=== PATIENT | male | born 1960 | race Caucasian/White ===

== ENCOUNTER 2019-05-17 15:17 | Outpatient (CLI) | payer OTHER, SELFPAY ==
--- NOTE | ~2019-05-17 | MR_ITS ---
EXAMINATION: MR foot RT wo con DATE: 05/17/2019 16:30 INDICATION: Right mid foot injury and pain. TECHNIQUE: Magnetic resonance imaging (MRI) of the right foot was performed without intravenous contr ast. Sequences included sagittal T1-weighted FSE and STIR FSE, long-axis PD-weighted FS FSE and PD-we ighted FSE, and short-axis PD-weighted FS FSE and T1-weighted FSE. COMPARISON: None FINDINGS: Bone alignment is normal. No fracture. There is severe osteoarthritis of third tarsometatar hannah joint and moderate osteoarthritis of intermediate naviculocuneiform joint. There is mild osteoart hritis of many of the midfoot joints. There is moderate osteoarthritis of first metatarsophalangeal j oint. There is a skin marker dorsal to the Lisfranc joint. Lisfranc ligament is intact. There is mild fatty atrophy of abductor digiti quinti muscle. IMPRESSION: 1. Polyarticular osteoarthritis. Reviewed, dictated and finalized at location A.
== END 2019-05-17 15:18 | disposition home or self-care (01) ==
LOC: ANHIMG 15:19
PROVIDERS: PCP Family Medicine; Visit Provider Podiatrist Foot & Ankle Surgery
DX: M19.071 Primary osteoarthritis, right ankle and foot (principal)
CPT/HCPCS: 73718

== ENCOUNTER 2019-06-29 10:22 | Emergency (ER) | payer OTHER, SELFPAY ==
--- NOTE | ~2019-06-29 | CT_ITS ---
EXAMINATION: CT abdomen pelvis w con DATE: 06/29/2019 11:57 INDICATION: Lower abdominal pain. Obstipation. TECHNIQUE: Computed tomography (CT) of the abdomen and pelvis was performed with 100 cc Omnipaque 350 intravenous contrast. Automated exposure control and iterative reconstruction technique were employe d. Exam dose: 1579.23 mGy-cm total exam DLP. COMPARISON: None. FINDINGS: There is discoid atelectasis and/or scarring in both lower lungs. Heart size is normal. No pericardial or pleural effusion. A fundoplication device is noted. Small sliding hiatal hernia. The liver, gallbladder, spleen, pancreas, bile and pancreatic ducts appear normal. Normal morphology of the adrenal glands. There is an up to 4 x 6 mm nonobstructing lower pole left renal calculus. No other urinary tract calc ulus. No hydroureteronephrosis. No renal space occupying mass lesion is evident. Normal caliber of the abdominal aorta. No intraperitoneal or retroperitoneal or pelvic mass lesion or adenopathy or ascites. There is a prominent of fecal material in the rectum and sigmoid colon, with moderate thickening and pneumatosis of the wall of the rectum and sigmoid colon and minimal pericolic fat stranding, suggesti ng possible stercoral proctocolitis. Fecal impaction may cause ischemic pressure necrosis and subsequ ent colonic perforation. Gastroenterology consult might be considered. Relief of the fecal impaction is recommended in order to avoid any possible colonic perforation, peritonitis. Normal appendix. Otherwise no bowel obstruction. No intraperitoneal free air is detected. The urinary bladder, seminal vesicles and prostate gland are unremarkable. Diffuse idiopathic skeletal hyperostosis of the lower thoracic spine. IMPRESSION: Stercoral proctocolitis; this carries the risk of colonic perforation, peritonitis witho ut relief of fecal impaction. Consider gastroenterology consult. Left nonobstructive nephrolithiasis Dr. Armendariz telephoned the report and recommendation to emergency room physician Dr. Maharaj on 0 at 1235 hours Reviewed, dictated and finalized at [facility]. Reviewed, dictated and finalized at location A. IMPRESSION: Stercoral proctocolitis; this carries the risk of colonic perforat ion, peritonitis without relief of fecal impaction. Consider gastroenterology consult. Left nonobstructive nephrolithiasis Dr. Armendariz telephoned the report and recommendation to emergency room physician Nita Maharaj on 06/29/2019 at 1235 hours
[2019-06-29 10:26] VITALS: BP 152/87; PULSE 81; RESP 18; TEMP 36.8; O2SAT 98
--- NOTE | 2019-06-29 10:34 | ED.ABDPAIN ---
HPI - Abdominal Pain General Chief Complaint: Abdominal Pain Stated Complaint: back, abd pain Time Seen by Provider: 06/29/19 10:28 Source: patient Mode of arrival: ambulatory Limitations: no limitations History of Present Illness HPI narrative: Patient is a 59-year-old male who presents for evaluation of lower abdominal pain. Patient reports a many month history of constipation, states that he has struggled with abdominal pain intermittently that seems to improve when he has bowel movements. He reports he has had a 3-day history of lower abdominal pain, he has had constipation and increased difficulty with bowel movements, he reports he did have one hard bowel movement yesterday, but often has bouts of diarrhea in between. He reports mild abdominal distention. No vomiting. No fever, no chest pain. No dysuria or hematuria. Patient last colonoscopy 7 years ago and was normal per patient. Patient reports rectal pain, no dark or tarry stool. No night sweats or weight loss. No history of cancer. Related Data Allergies Allergy/AdvReac Type Severity Reaction Status Date / Time No Known Allergies Allergy Verified 06/29/19 10:33 Review of Systems Review of Systems: Narrative: CONSTITUTIONAL: Denies fever, chills, or sweats. ENT: Denies rhinorrhea, congestion, sore throat, or otalgia. CARDIOVASCULAR: Denies chest pain, palpitations, or edema. RESPIRATORY: Denies cough or dyspnea. GASTROINTESTINAL: Reports abdominal pain, nausea, vomiting, constipation, reports rectal pain GENITOURINARY: Denies dysuria or hematuria. SKIN: Denies rash or itching. MUSCULOSKELETAL: Denies back pain, joint pain, or myalgia. NEUROLOGIC: Denies headache, numbness, or weakness. [facility] Past Medical History Medical History (Updated 06/29/19 @ 13:18 by Jackie Maharaj MD) Constipation Surgical History Surgical History (Updated 06/29/19 @ 10:50 by Jackie Maharaj MD) No pertinent past surgical history Social History Social History (Updated 06/29/19 @ 10:50 by Jackie Maharaj MD) Smoking status: Current every day smoker Tobacco type: cigarettes Alcohol intake: current Substance use: never Gender identity (if verbalized by the patient): Male Exam Narrative: Exam Narrative: GENERAL: Awake, alert, conversant HEAD: Normocephalic, atraumatic. EYES: PERRLA and EOMI. ENT: Nares clear, no rhinorrhea or epistaxis. Mucous membranes moist. NECK: Supple. CHEST: No respiratory distress, breathing even and non labored HEART: Regular rate, sinus rhythm ABDOMEN:Non distended, mild left lower quadrant tenderness, no guarding, nonrigid. : External hemorrhoid, nonthrombosed, nontender, good rectal tone, hard stool present, some stool was removed. Guaiac negative. EXTREMITIES: Normal range of motion. No edema. SKIN: Warm, dry, no rash. NEURO:No focal deficits. Alert and oriented x3 Course Vital Signs Vital signs: Vital Signs Temperature 36.8 C 06/29/19 10:26 Pulse Rate 81 06/29/19 10:26 Respiratory Rate 18 06/29/19 10:26 Blood Pressure 152/87 H 06/29/19 10:26 Pulse Oximetry 98 06/29/19 10:26 Temperature 36.8 C 06/29/19 10:26 Pulse Rate 81 06/29/19 10:26 Respiratory Rate 18 06/29/19 10:26 Blood Pressure 152/87 H 06/29/19 10:26 Pulse Oximetry 98 06/29/19 10:26 MDM - Abdominal Pain MDM Narrative Medical decision making narrative: Patient presented for evaluation of abdominal pain and constipation. At the time of initial assessment, ABCs are intact and vital signs are stable. Physical examination is notable for lower abdominal tenderness without distention, rebound or guarding. Laboratory results showed no acute electrolyte derangement, no acute kidney injury. CT scan is notable for stercoral proctocolitis, no perforation. Patient was given magnesium, given an enema unable to have a bowel movement in the ER. I spoke with Dr. Dubose, initially if the patient would be unable to have a bowel movement
[2019-06-29 10:57] LABS: Basophils Percent Auto 0.5 % (0.2-1.2); Eosinophils Absolute Auto 0.2 K/mm3 (0-0.3); Eosinophils Percent Auto 1.8 % (0-4.4); Hemoglobin 14.7 g/dL (14.0-18.0); Immature Granulocyte Absolute 0.03 K/mm3 (0.00-0.031); Immature Granulocyte Percent A 0.4 % (0-0.5); Lymphocytes Absolute Auto 2.05 K/mm3 (0.9-3.2); Lymphocytes Percent Auto 23.9 % (18.3-44.2); Mean Corpuscular HGB Conc 33.4 g/dl (32-36); Mean Corpuscular Hemoglobin 29.9 pg (26-34); Mean Corpuscular Volume 89.6 fl (80-100); Mean Platelet Volume 9.8 fl (7.4-10.4); Monocytes Absolute Auto 0.9 K/mm3 (0.1-0.6); Monocytes Percent Auto 10.7 % (2.6-8.5); Neutrophils Absolute Auto 5.4 K/mm3 (1.3-6.7); Neutrophils Percent Auto 62.7 % (45.5-73.1); Platelet Count Result 327 k/mm3 (150-375); Red Blood Count 4.91 M/mm3 (4.6-6.20); Red Cell Distribution Width 12.3 % (11.5-14.5); White Blood Count 8.6 K/mm3 (4.5-10.0)
[2019-06-29 11:12] LABS: Alanine Aminotransferase 24 U/L (4-50); Albumin Level 4.6 g/dL (3.5-5.1); Alkaline Phosphatase 75 U/L (38-126); Aspartate Amino Transferase 24 U/L (17-59); Bilirubin,Total 0.4 mg/dL (0.2-1.3); Blood Urea Nitrogen 21 mg/dL (9-20); Calcium 9.7 mg/dL (8.4-10.2); Carbon Dioxide 28 mmol/L (22-30); Chloride 103 mmol/L (98-107); Estimated CRCL calculation 124 ml/min; Estimated Glomerular Filt Rate > 60; Glucose 102 mg/dL (75-110); Lipase 102 U/L (23-300); Potassium 4.5 mmol/L (3.4-5.0); Sodium 139 mmol/L (137-145)
[2019-06-29] MEDS: MAGNESIUM SULF 2 GM/WATER 50ML 2 GM/50 ML BAG IVPB (12:03)
[2019-06-29 12:43] LABS: Add Urine Microscopic? NO; Appearance Urine Clear (Clear); Bilirubin Urine Negative (Negative); Blood Urine Negative (Negative); Color Urine Straw (Yellow); Glucose Urine UA Negative (Negative); Ketones Urine Negative (Negative); Leukocyte Esterase Ur Negative LEU/UL (Negative); Nitrate Urine Negative (Negative); Protein Urine Negative (Negative); Specific Grav Ur 1.019 (1.001-1.035); Urobilinogen Urine Negative mg/dL (<2.0)
== END 2019-06-29 14:22 | disposition home or self-care (01) ==
PROVIDERS: Emergency Provider Emergency Medicine
DX: K59.00 Constipation, unspecified (principal); F17.210 Nicotine dependence, cigarettes, uncomplicated; N20.0 Calculus of kidney
CPT/HCPCS: 36415; 74177; 80053; 81003; 83690; 85025; 96365; 99284; J3475; Q9967

== ENCOUNTER 2019-07-18 02:12 | Emergency (ER) | payer OTHER, MEDICARE, SELFPAY ==
--- NOTE | ~2019-07-18 | XR_ITS ---
EXAMINATION: XR chest 2V DATE: 07/18/2019 02:58 INDICATION: Shortness of breath. TECHNIQUE: Frontal and lateral views of the chest were obtained. COMPARISON: Chest 2 views 01/19/2018, CT abdomen and pelvis 07/18/2019 FINDINGS: There is mild atelectasis in the lower lung zones. No pleural effusion or pneumothorax. The heart size is normal. There is a lap band around the proximal stomach with normal phi angle. IMPRESSION: 1. Mild atelectasis in the lower lung zones. Reviewed, dictated and finalized at location A.
--- NOTE | ~2019-07-18 | CT_ITS ---
EXAMINATION: CT abd pelvis lumbar w con DATE: 07/18/2019 03:10 INDICATION: Abdominal pain. Back pain. TECHNIQUE: Computed tomography (CT) of the abdomen, pelvis, and lumbar spine was performed with 100 m L Omnipaque 350 intravenous contrast. Automated exposure control and iterative reconstruction Julep ue were employed. The dose-length product was 1492.76 mGy-cm. COMPARISON: CT abdomen and pelvis 06/29/2019 FINDINGS: CT ABDOMEN AND PELVIS: The visualized portions of the lung bases demonstrate mild atelectasis. No pleural effusion. The hear t size is normal. No pericardial effusion. There is wall thickening of the distal esophagus, likely e sophagitis. There is a lap band with normal phi angle. The liver, gallbladder, spleen, pancreas, adre nal glands, and right kidney are normal. There is a 4 mm stone in left kidney. There is a small left inguinal hernia containing fat. There are no dilated loops of bowel. The appendix is normal. There ar e no pathologically enlarged lymph nodes. There is no free intraperitoneal fluid. CT LUMBAR SPINE: Bone alignment is normal. Vertebral body heights are normal. There is mildly decreased disc height at L1-L2, L2-L3, and L4-L5. The following disc levels are specifically discussed: L1-L2: The disc is bulging. There is mild bilateral facet joint osteoarthritis. There is mild right n eural foraminal stenosis. There is mild central canal stenosis. L2-L3: The disc is bulging. There is mild bilateral facet joint osteoarthritis. There is mild bilater al neural foraminal stenosis. There is mild central canal stenosis. L3-L4: The disc is bulging. There is mild bilateral facet joint osteoarthritis. There is mild bilater al neural foraminal stenosis. There is mild central canal stenosis. L4-L5: The disc is bulging. There is mild bilateral facet joint osteoarthritis. There is mild bilater al neural foraminal stenosis. There is mild central canal stenosis. L5-S1: The disc is bulging. There is mild bilateral facet joint osteoarthritis. There is mild bilater al neural foraminal stenosis. There is mild central canal stenosis. IMPRESSION: 1. Stable wall thickening of the distal esophagus, likely esophagitis. 2. Mild lumbar spondylosis. Reviewed, dictated and finalized at location A.
[2019-07-18 02:19] VITALS: BP 132/75; PULSE 64; RESP 20; TEMP 36.8; O2SAT 100
--- NOTE | 2019-07-18 02:20 | ED.GENADULT ---
HPI - General Adult General Chief complaint: Shortness of Breath/Dyspnea Stated complaint: back pain, sob Time Seen by Provider: 07/18/19 02:20 Source: patient Mode of arrival: ambulatory Limitations: no limitations History of Present Illness HPI narrative: Patient is a 59-year-old male that returns for evaluation of back pain, abdominal pain, chest pain and shortness of breath. Patient was seen by myself in the emergency department approximately 2 weeks ago, diagnosed with obstipation, able to have a bowel movement, and was discharged home. Patient is reporting with chest pain as well as pain when taking a deep breath. He states that this is been going on for approximately 2 weeks. Patient has had 2 weeks of back pain as well. No recent falls or trauma. Patient is ambulatory. No saddle anesthesia, no difficulty with urination, dysuria or hematuria. No fever. Patient reports a dry cough. He denies abdominal distention, he states it has been 2 days since he has had a bowel movement. Patient denies any current shortness of breath, states that he notices it more when he is at exertion. P Related Data Allergies Allergy/AdvReac Type Severity Reaction Status Date / Time No Known Allergies Allergy Verified 07/18/19 02:27 Review of Systems Review of Systems: Narrative: CONSTITUTIONAL: Denies fever, chills, or sweats. EYES: Denies visual changes ENT: Denies rhinorrhea, reports congestion CARDIOVASCULAR: Reports chest pain, denies palpitations or edema RESPIRATORY: Reports dry cough and shortness of breath GASTROINTESTINAL: Reports abdominal pain and constipation GENITOURINARY: Denies dysuria or hematuria. SKIN: Denies rash or itching. MUSCULOSKELETAL: Reports back pain for 2 weeks, no myalgias NEUROLOGIC: Denies headache, numbness, or weakness. [facility] Past Medical History Medical History Constipation Surgical History Surgical History No pertinent past surgical history Social History Social History Smoking status: Current every day smoker Tobacco type: cigarettes Alcohol intake: current Substance use: never Gender identity (if verbalized by the patient): Male Exam Narrative: Exam Narrative: GENERAL: Awake, alert, conversant HEAD: Normocephalic, atraumatic. EYES: PERRLA and EOMI. ENT: Nares clear, no rhinorrhea or epistaxis. Mucous membranes moist. NECK: Supple. CHEST: No respiratory distress, breathing even and non labored HEART: Regular rate, sinus rhythm ABDOMEN:Non distended, mild tenderness to palpation throughout, no guarding, no rigidity Thorax: No thoracic midline tenderness. Positive lumbar midline tenderness at L2. This exactly reproduces pain. No overlying erythema. No paraspinal tenderness. Pain is worse with movement. EXTREMITIES: Normal range of motion. No edema. SKIN: Warm, dry, no rash. NEURO:No focal deficits. Alert and oriented x3. EOMs intact without nystagmus. No facial droop/asymmetry noted bilaterally. Grimace intact. Intact sensation in face. Hearing intact bilaterally. Shoulder shrug intact. Strength 5/5 bilateral upper extremities. Strength 5/5 bilateral lower extremities. Patient is ambulatory with a narrow base, steady gait, no weakness. Course Course Emergency Course: Patient presented for 2 weeks of chest pain, constipation and shortness of breath. Patient without any dyspnea with exertion, normal vital signs at the time of assessment. Mild abdominal tenderness. Doubt PE given no risk factors for this. D-dimer is not elevated making this less suggestive. No coronavirus type symptoms. Troponin is undetected, making ACS unlikely in the setting of 2 weeks of pain. EKG without acute ischemic changes. CT imaging is reassuring. No evidence of diverticulitis, obstruction or perforation. Lumbar spine without acute fractu
--- NOTE | 2019-07-18 02:22 | ECG_ITS ---
Measurements Intervals [place] Rate: 58 P: 20 LA: 161 QRS: 81 QRSD: 95 T: 75 QT: 398 QTc: 391 Interpretive Statements SINUS BRADYCARDIA PEAKED T WAVES- CONSIDER HYPERKALEMIA OR ISCHEMIA BASELINE ARTIFACT- I, II, III, AVR, AVL, AVF, V2, V4 ABNORMAL ECG Electronically Signed On 07-18-2019 7:03:19 CDT by Tra Brand D.O.
[2019-07-18 02:34] LABS: Basophils Absolute Auto 0.1 K/mm3 (0.0-0.1); Basophils Percent Auto 0.5 % (0.2-1.2); Eosinophils Absolute Auto 0.2 K/mm3 (0-0.3); Eosinophils Percent Auto 1.4 % (0-4.4); Hemoglobin 14.2 g/dL (14.0-18.0); Immature Granulocyte Absolute 0.03 K/mm3 (0.00-0.031); Immature Granulocyte Percent A 0.3 % (0-0.5); Lymphocytes Absolute Auto 2.46 K/mm3 (0.9-3.2); Lymphocytes Percent Auto 22.5 % (18.3-44.2); Mean Corpuscular HGB Conc 33.8 g/dl (32-36); Mean Corpuscular Hemoglobin 30.2 pg (26-34); Mean Corpuscular Volume 89.4 fl (80-100); Mean Platelet Volume 9.3 fl (7.4-10.4); Monocytes Absolute Auto 1.2 K/mm3 (0.1-0.6); Monocytes Percent Auto 10.6 % (2.6-8.5); Neutrophils Absolute Auto 7.1 K/mm3 (1.3-6.7); Neutrophils Percent Auto 64.7 % (45.5-73.1); Platelet Count Result 329 k/mm3 (150-375); Red Cell Distribution Width 12.2 % (11.5-14.5); White Blood Count 10.9 K/mm3 (4.5-10.0)
--- NOTE | 2019-07-18 02:37 | PC.NURSE ---
called lab and notified of add on labs
[2019-07-18 02:47] LABS: Alanine Aminotransferase 17 U/L (4-50); Albumin Level 4.4 g/dL (3.5-5.1); Alkaline Phosphatase 76 U/L (38-126); Aspartate Amino Transferase 21 U/L (17-59); Bilirubin,Total 0.2 mg/dL (0.2-1.3); Blood Urea Nitrogen 19 mg/dL (9-20); Calcium 9.5 mg/dL (8.4-10.2); Carbon Dioxide 28 mmol/L (22-30); Chloride 101 mmol/L (98-107); Estimated CRCL calculation 122 ml/min; Estimated Glomerular Filt Rate > 60; Glucose 103 mg/dL (75-110); Potassium 3.8 mmol/L (3.4-5.0); Sodium 138 mmol/L (137-145)
[2019-07-18] MEDS: DIAZEPAM 5 MG TABLET PO (02:49)
[2019-07-18] MEDS: ASPIRIN 81 MG CHEWABLE TABLET 324 MG PO (02:49)
[2019-07-18] MEDS: ACETAMINOPHEN 500 MG TABLET 1000 MG PO (02:49)
[2019-07-18] MEDS: KETOROLAC 15 MG/ML VIAL (*BKC) IV PUSH (02:50)
[2019-07-18 02:54] LABS: Partial Thromboplastin Time 27.3 SECONDS (22.3-36.8)
[2019-07-18 02:56] LABS: D Dimer 0.35 ug/mL (<0.48); NT Pro B Type Natriuretic Pept 105 PG/ML (5-100)
[2019-07-18 02:59] LABS: Troponin I < 0.012 ng/mL (0.000-0.034)
[2019-07-18 03:21] VITALS: BP 107/93; PULSE 60; RESP 20; O2SAT 99
[2019-07-18 04:04] VITALS: BP 116/78; PULSE 60; RESP 20; O2SAT 99
[2019-07-18 05:05] VITALS: BP 127/81; PULSE 55; RESP 18; O2SAT 99
== END 2019-07-18 05:13 | disposition home or self-care (01) ==
PROVIDERS: Emergency Provider Emergency Medicine; PCP Family Medicine
DX: R07.89 Other chest pain (principal); K59.01 Slow transit constipation; M54.5 Low back pain; F17.210 Nicotine dependence, cigarettes, uncomplicated; R00.1 Bradycardia, unspecified; R94.31 Abnormal electrocardiogram [ECG] [EKG]; M47.816 Spondylosis without myelopathy or radiculopathy, lumbar region; R93.3 Abnormal findings on diagnostic imaging of other parts of digestive tract
CPT/HCPCS: 36415; 71046; 72132; 74177; 80053; 83880; 84484; 85025; 85380; 85610; 85730; 93005; 96374; 99284; A9270; J1885; Q9967

== ENCOUNTER 2020-04-03 09:34 | Emergency (ER) | payer OTHER, SELFPAY ==
--- NOTE | ~2020-04-03 | CT_ITS ---
EXAMINATION: CT abdomen pelvis w con DATE: 04/03/2020 11:07 INDICATION: Left abdominal pain. TECHNIQUE: Computed tomography (CT) of the abdomen and pelvis was performed with 100 mL Omnipaque 350 intravenous contrast. Automated exposure control and iterative reconstruction technique were employe d. The dose-length product was 1634.35 mGy-cm. COMPARISON: CT abdomen and pelvis 07/18/2019 FINDINGS: The visualized portions of the lung bases demonstrate mild atelectasis. No pleural effusion . The heart size is normal. No pericardial effusion. There is a lap band in the proximal stomach with phi angle of 24 degrees. The liver, gallbladder, spleen, pancreas, adrenal glands, and right kidney are normal. There is mild left hydronephrosis. There is a 5 mm stone in proximal left ureter. Again s een is wall thickening of the distal esophagus. There are no dilated loops of bowel. The appendix is normal. There is a small left inguinal hernia containing fat. There are no pathologically enlarged ly mph nodes. There is no free intraperitoneal fluid. There is mild thoracolumbar spondylosis. IMPRESSION: 1. 5 mm stone in proximal left ureter with mild left hydronephrosis. 2. Persistent wall thickening of the distal esophagus, likely esophagitis. Reviewed, dictated and finalized at location A. TENDER
[2020-04-03 10:00] VITALS: BP 155/82; PULSE 73; RESP 20; TEMP 36.9; O2SAT 99
[2020-04-03 10:21] LABS: Basophils Absolute Auto 0.1 K/mm3 (0.0-0.1); Basophils Percent Auto 0.6 % (0.2-1.2); Eosinophils Absolute Auto 0.1 K/mm3 (0-0.3); Eosinophils Percent Auto 0.8 % (0-4.4); Hematocrit 42.6 % (42.0-52.0); Hemoglobin 14.3 g/dL (14.0-18.0); Immature Granulocyte Absolute 0.02 K/mm3 (0.00-0.031); Immature Granulocyte Percent A 0.2 % (0-0.5); Lymphocytes Absolute Auto 1.82 K/mm3 (0.9-3.2); Lymphocytes Percent Auto 21.2 % (18.3-44.2); Mean Corpuscular HGB Conc 33.6 g/dl (32-36); Mean Corpuscular Hemoglobin 29.1 pg (26-34); Mean Corpuscular Volume 86.6 fl (80-100); Mean Platelet Volume 9.3 fl (7.4-10.4); Monocytes Percent Auto 11.3 % (2.6-8.5); Neutrophils Absolute Auto 5.7 K/mm3 (1.3-6.7); Neutrophils Percent Auto 65.9 % (45.5-73.1); Platelet Count Result 330 k/mm3 (150-375); Red Blood Count 4.92 M/mm3 (4.6-6.20); Red Cell Distribution Width 12.7 % (11.5-14.5); White Blood Count 8.6 K/mm3 (4.5-10.0)
[2020-04-03 10:26] LABS: Add Urine Microscopic? YES; Appearance Urine Cloudy (Clear); Bilirubin Urine Negative (Negative); Blood Urine 3+ (Negative); Color Urine Yellow (Yellow); Glucose Urine UA Negative (Negative); Ketones Urine Trace mg/dL (Negative); Leukocyte Esterase Ur Trace LEU/UL (Negative); Mucus Urine Heavy /lpf; Nitrate Urine Negative (Negative); Protein Urine 2+ mg/dL (Negative); RBC Urine >75 /hpf (0-2); Specific Grav Ur 1.026 (1.001-1.035); Urobilinogen Urine Negative mg/dL (<2.0)
[2020-04-03 10:32] LABS: Chloride 101 mmol/L (98-107)
[2020-04-03 10:44] LABS: Alanine Aminotransferase 26 U/L (4-50); Albumin Level 4.3 g/dL (3.5-5.1); Alkaline Phosphatase 85 U/L (38-126); Anion Gap 10 mmol/L (8-16); Aspartate Amino Transferase 28 U/L (17-59); Bilirubin,Total 0.5 mg/dL (0.2-1.3); Blood Urea Nitrogen 14 mg/dL (9-20); Calcium 9.3 mg/dL (8.4-10.2); Carbon Dioxide 27 mmol/L (22-30); Estimated CRCL calculation 129 ml/min; Estimated Glomerular Filt Rate > 60; Glucose 107 mg/dL (75-110); Lipase 186 U/L (23-300); Potassium 3.9 mmol/L (3.4-5.0); Sodium 138 mmol/L (137-145)
--- NOTE | 2020-04-03 10:51 | ED.ABDPAIN ---
HPI - Abdominal Pain General Chief Complaint: Abdominal Pain Stated Complaint: ABD PAIN [id number] Time Seen by Provider: 04/03/20 09:37 Source: patient Mode of arrival: ambulatory Limitations: no limitations History of Present Illness HPI narrative: A 59-year-old male presents to the emergency department complaints of abdominal pain starting in his left upper quadrant and left flank. Patient states that the pain has been very episodic. He notes that the pain will come on spike up and be present for approximately an hour and then dwindle away. He states currently his pain is about a 1 out of 10. He denies any issues with urination or constipation. Patient states he has been having normal bowel movements. He denies any fevers or chills. He does endorse some nausea with severe pain but states normally he does not. He states he has never had pain like this before. Patient is concerned because he has a history of a LAP-BAND surgery. Related Data Home Medications Medication Instructions Recorded Confirmed paroxetine HCl mg PO 04/03/20 Allergies Allergy/AdvReac Type Severity Reaction Status Date / Time No Known Allergies Allergy Verified 04/03/20 10:03 Review of Systems Review of Systems: Narrative: CONSTITUTIONAL: Denies fever, chills, or sweats. EYES: Denies visual changes, redness, or discharge. ENT: Denies rhinorrhea, congestion, sore throat, or otalgia. CARDIOVASCULAR: Denies chest pain, palpitations, or edema. RESPIRATORY: Denies cough or dyspnea. GASTROINTESTINAL: Denies abdominal pain, nausea, vomiting, or diarrhea. Endorses left abdominal/flank pain GENITOURINARY: Denies dysuria or hematuria. SKIN: Denies rash or itching. MUSCULOSKELETAL: Denies back pain, joint pain, or myalgia. NEUROLOGIC: Denies headache, numbness, dizziness, or weakness. PSYCHIATRIC: Denies anxiety or depression. [facility] Past Medical History Medical History (Updated 04/03/20 @ 12:13 by Pino Gonzalez DO) Constipation Surgical History Surgical History No pertinent past surgical history Social History Social History Smoking status: Current every day smoker Tobacco type: cigarettes Alcohol intake: current Substance use: never Gender identity (if verbalized by the patient): Male Exam Narrative: Exam Narrative: GENERAL: Well-appearing, well-nourished, and in no acute distress. HEAD: Normocephalic, atraumatic. EYES: PERRLA and EOMI. ENT: Nares clear, no rhinorrhea or epistaxis. Mucous membranes moist. Oropharynx without tonsillar hypertrophy exudate or other lesions. Bilateral TMs pearly lemons nonbulging NECK: Supple. No adenopathy or masses. No carotid bruits or JVD CHEST: Clear to auscultation. No respiratory distress. No wheezes rales or rhonchi HEART: Regular rate and rhythm. No murmur heard. Normal peripheral pulses. ABDOMEN: Soft, nontender, nondistended, normal active bowel sounds. EXTREMITIES: Normal range of motion. No edema. SKIN: Warm, dry, no rash. NEURO: No focal deficits. Alert and oriented x3. PSYCH: Normal mood and affect. Course Reevaluation(s) Reevaluation #1: Patient resting comfortably at this time. He was informed of his work-up. He states that his pain has decreased. Explained the patient the plan for moving forward. He will be discharged with pain medicines, Flomax and urology follow-up. Time: 12:12 Vital Signs Vital signs: Vital Signs Temperature 36.9 C 04/03/20 10:00 Pulse Rate 73 04/03/20 10:00 Respiratory Rate 04/03/20 10:00 Blood Pressure 155/82 H 04/03/20 10:00 Pulse Oximetry 99 04/03/20 10:00 Temperature 36.9 C 04/03/20 10:00 Pulse Rate 73 04/03/20 10:00 Respiratory Rate 20 04/03/20 10:00 Blood Pressure 155/82 H 04/03/20 10:00 Pulse Oximetry 99 04/03/20 10:00 MDM - Abdominal Pain MDM Narrative Medical decision making narrative: In
[2020-04-03 12:16] VITALS: BP 154/71; PULSE 60; RESP 16; O2SAT 100
== END 2020-04-03 12:36 | disposition home or self-care (01) ==
PROVIDERS: Emergency Provider Emergency Medicine
DX: N13.2 Hydronephrosis with renal and ureteral calculous obstruction (principal)
CPT/HCPCS: 36415; 74177; 80053; 81001; 83690; 85025; 87086; 99284; Q9967

== ENCOUNTER 2020-04-06 10:49 | Outpatient (CLI) | payer OTHER, SELFPAY ==
--- NOTE | ~2020-04-06 | XR_ITS ---
XR abdomen/kub 1V DATE: 04/06/2020 11:08 INDICATION: Left ureteral calculus TECHNIQUE: AP projection, 2 views COMPARISON: 04/03/2020 CT abdomen pelvis FINDINGS: Questionable small faintly calcified calculus overlying the left ureteropelvic junction; no ncontrast CT abdomen pelvis would be helpful to confirm or exclude such. Otherwise no urinary tract calcification is evident. The psoas shadows are intact. No visceromegaly is evident. Lap band is again noted. No bowel obstruction. IMPRESSION: Questionable faintly calcified calculus at the left ureteropelvic junction; noncontrast C T abdomen pelvis would be helpful to confirm or exclude Reviewed, dictated and finalized at Location [facility]. Reviewed, dictated and finalized at location A. T OPERATOR/SHIFT SUPERVISOR IMPRESSION: Questionable faintly calcified calculus at the left ureteropelvic j unction; noncontrast CT abdomen pelvis would be helpful to confirm or exclude
== END 2020-04-06 10:50 | disposition home or self-care (01) ==
PROVIDERS: PCP Emergency Medicine; Visit Provider Urology
DX: N20.1 Calculus of ureter (principal)
CPT/HCPCS: 74018

== ENCOUNTER 2020-04-07 12:25 | Outpatient (CLI) | payer OTHER, SELFPAY ==
--- NOTE | ~2020-04-07 | MR_ITS ---
EXAMINATION: MR foot RT wo con DATE: 04/07/2020 13:54 INDICATION: Right foot pain. Right foot osteoarthritis. TECHNIQUE: Magnetic resonance imaging (MRI) of the right foot was performed without intravenous contr ast. Sequences included sagittal T1-weighted FSE and STIR FSE, long-axis PD-weighted FS FSE and PD-we ighted FSE, and short-axis PD-weighted FS FSE and T1-weighted FSE. COMPARISON: Right foot MRI 05/17/2019 FINDINGS: Bone alignment is normal. No fracture. There is moderate osteoarthritis of intermediate douglas iculocuneiform joint. There is severe osteoarthritis of third tarsometatarsal joint. There is mild os teoarthritis of many of the midfoot joints. There is moderate osteoarthritis of first metatarsophalan geal joint. Lisfranc ligament is intact. The flexor and extensor tendons are normal. There is a skin marker dorsal to the Lisfranc joint. There is mild fatty atrophy of abductor digiti quinti muscle. IMPRESSION: 1. Stable polyarticular osteoarthritis. Reviewed, dictated and finalized at location A. H BOX TENDER
== END 2020-04-07 12:26 | disposition home or self-care (01) ==
PROVIDERS: PCP Emergency Medicine
DX: M19.071 Primary osteoarthritis, right ankle and foot (principal)
CPT/HCPCS: 73718

== ENCOUNTER 2020-05-31 22:06 | Emergency (ER) | payer OTHER, SELFPAY ==
--- NOTE | ~2020-05-31 | CT_ITS ---
EXAMINATION: CT abdomen pelvis w con DATE: 06/01/2020 00:53 INDICATION: Abdominal pain. Gastric lap band removed 8 days ago TECHNIQUE: Computed tomography (CT) of the abdomen and pelvis was performed with 100 cc Omnipaque 350 intravenous contrast. Automated exposure control and iterative reconstruction technique were employe d. Exam dose: 1645.09 mGy-cm total exam DLP. COMPARISON: 04/03/2020 CT abdomen pelvis FINDINGS: Prominent discoid atelectasis or scarring in the lower lung zones. Cardiomegaly. No pericardial or pleural effusion. The gallbladder is contracted. The liver, spleen, pancreas, bile ducts, pancreatic duct and adrenal g lands are unremarkable. No renal mass lesion. No urinary tract calculus or hydroureteronephrosis. The urinary bladder is unre markable. Moderate prostate enlargement. Small fat-containing left inguinal hernia. Small fat-containing umbilical hernia. Normal appendix. Mild colonic diverticulosis; no CT evidence of diverticulitis. No bowel obstruction, bowel wall thickening, pneumatosis or intraperitoneal free air. Normal caliber of the abdominal aorta. No intraperitoneal or retroperitoneal or pelvic mass lesion or adenopathy or ascites. No suspicious osteolytic or osteoblastic lesions. There is a 8.9 x 3.4 x 6.1 cm fluid collection and small air collections in the subcutaneous tissues along the left anterior abdominal wall, with adjacent fat stranding. This may represent an abscess. IMPRESSION: Fluid and small collection, possibly abscess, along left anterior abdominal wall with schreiber rrounding subcutaneous fat stranding Reviewed, dictated and finalized at [facility] Reviewed, dictated and finalized at [facility] IMPRESSION: Fluid and small collection, possibly abscess, along left anterior abdominal wall with surrounding subcutaneous fat stranding
[2020-05-31 22:12] VITALS: BP 134/88; PULSE 103; RESP 16; TEMP 36.4; O2SAT 98
[2020-05-31] MEDS: SODIUM CHLORIDE 0.9% IV 1,000 ML 999 ML IV CONT (22:49)
[2020-05-31] MEDS: ONDANSETRON INJ 4 MG/2 ML VIAL IV PUSH (22:49)
[2020-05-31 22:50] LABS: Basophils Percent Auto 0.4 % (0.2-1.2); Eosinophils Absolute Auto 0.2 K/mm3 (0-0.3); Eosinophils Percent Auto 2.2 % (0-4.4); Hematocrit 41.2 % (42.0-52.0); Hemoglobin 13.6 g/dL (14.0-18.0); Immature Granulocyte Absolute 0.04 K/mm3 (0.00-0.031); Immature Granulocyte Percent A 0.4 % (0-0.5); Lymphocytes Absolute Auto 2.11 K/mm3 (0.9-3.2); Lymphocytes Percent Auto 19.8 % (18.3-44.2); Mean Corpuscular Hemoglobin 29.3 pg (26-34); Mean Corpuscular Volume 88.8 fl (80-100); Mean Platelet Volume 9.7 fl (7.4-10.4); Monocytes Absolute Auto 1.1 K/mm3 (0.1-0.6); Monocytes Percent Auto 10.2 % (2.6-8.5); Neutrophils Absolute Auto 7.2 K/mm3 (1.3-6.7); Platelet Count Result 395 k/mm3 (150-375); Red Blood Count 4.64 M/mm3 (4.6-6.20); Red Cell Distribution Width 13.2 % (11.5-14.5); White Blood Count 10.7 K/mm3 (4.5-10.0)
[2020-05-31 23:03] LABS: Alanine Aminotransferase 24 U/L (4-50); Albumin Level 4.4 g/dL (3.5-5.1); Alkaline Phosphatase 91 U/L (38-126); Anion Gap 11 mmol/L (8-16); Aspartate Amino Transferase 27 U/L (17-59); Bilirubin,Total 0.2 mg/dL (0.2-1.3); Blood Urea Nitrogen 15 mg/dL (9-20); Calcium 9.5 mg/dL (8.4-10.2); Carbon Dioxide 27 mmol/L (22-30); Chloride 100 mmol/L (98-107); Estimated CRCL calculation 118 ml/min; Estimated Glomerular Filt Rate > 60; Glucose 96 mg/dL (75-110); Lipase 112 U/L (23-300); Sodium 138 mmol/L (137-145)
--- NOTE | 2020-05-31 23:17 | ED.GENADULT ---
HPI - General Adult General Chief complaint: Wound/Laceration Stated complaint: post op infection - stomach Time Seen by Provider: 05/31/20 22:22 History of Present Illness HPI narrative: Patient is a 59-year-old gentleman who presents the emergency department with chief complaints of possible infected surgical site. The patient reports that he had a lap band removal and replacement approximately 8 days ago at another facility. The patient states that since he had the procedure he has not felt right and noticed some fullness at one of the incision sites. The patient saw his primary care physician who recommended that he go to the emergency department for evaluation the patient attempted to go to the emergency department at [facility] where his surgeon is states that they were incredibly busy and he sat around for 5 hours and they get nothing Related Data Home Medications Medication Instructions Recorded Confirmed paroxetine HCl mg PO 04/03/20 Allergies Allergy/AdvReac Type Severity Reaction Status Date / Time No Known Allergies Allergy Verified 04/03/20 10:03 Review of Systems Review of Systems: Narrative: A 10 system review of systems was completed on the patient and is negative except for what is stated in the HPI. Nursing and ancillary documentation was reviewed. [facility] Past Medical History Medical History (Updated 06/01/20 @ 01:42 by Salvador Pérez MD) Constipation Surgical History Surgical History No pertinent past surgical history Social History Social History Smoking status: Current every day smoker Tobacco type: cigarettes Alcohol intake: current Substance use: never Gender identity (if verbalized by the patient): Male Comments Patient had a previous lap band and has had a redo 8 days ago Exam Narrative: Exam Narrative: GENERAL: Well-appearing, well-nourished, and in no acute distress. HEAD: Normocephalic, atraumatic. EYES: PERRLA and EOMI. ENT: Nares clear, no rhinorrhea or epistaxis. Mucous membranes moist. NECK: Supple. CHEST: Clear to auscultation. No respiratory distress. HEART: Regular rate and rhythm. No murmur heard. Normal peripheral pulses. ABDOMEN: Soft, nontender, nondistended, normal active bowel sounds. There are several incision sites on the abdomen there is no erythema of the surrounding tissue there is a fullness of the soft tissue surrounding the more midline incision there is no fluctuance there is no erythema there is no warmth EXTREMITIES: Normal range of motion. No edema. SKIN: Warm, dry, no rash. NEURO: No focal deficits. Alert and oriented x3. PSYCH: Normal mood and affect. Course Course Emergency Course: CT scan showed a fluid collection in the left anterior wall at the incision site most likely a seroma Vital Signs Vital signs: Vital Signs Temperature 36.4 C L 05/31/20 22:12 Pulse Rate 103 H 05/31/20 22:12 Respiratory Rate 16 05/31/20 22:12 Blood Pressure 134/88 05/31/20 22:12 Pulse Oximetry 98 05/31/20 22:12 Temperature 36.4 C L 05/31/20 22:12 Pulse Rate 103 H 05/31/20 22:12 Respiratory Rate 16 05/31/20 22:12 Blood Pressure 134/88 05/31/20 22:12 Pulse Oximetry 98 05/31/20 22:12 Medical Decision Making Vital Signs Vital Signs: Vital Signs Temperature 36.4 C L 05/31/20 22:12 Pulse Rate 103 H 05/31/20 22:12 Respiratory Rate 16 05/31/20 22:12 Blood Pressure 134/88 05/31/20 22:12 Pulse Oximetry 98 05/31/20 22:12 Temperature 36.4 C L 05/31/20 22:12 Pulse Rate 103 H 05/31/20 22:12 Respiratory Rate 16 05/31/20 22:12 Blood Pressure 134/88 05/31/20 22:12 Pulse Oximetry 98 05/31/20 22:12 Lab Data Result diagrams: 05/31/20 22:41 05/31/20 22:41 Labs: Lab Results 05/31/20 05/31/20 05/31/20 Range/Units
[2020-06-01 00:05] VITALS: BP 141/86; PULSE 82; RESP 16; O2SAT 98
[2020-06-01 02:00] VITALS: BP 134/82; PULSE 81; RESP 16; TEMP 36.2; O2SAT 98
== END 2020-06-01 02:01 | disposition home or self-care (01) ==
PROVIDERS: Emergency Provider Emergency Medicine; PCP Emergency Medicine
DX: L76.34 Postprocedural seroma of skin and subcutaneous tissue following other procedure (principal); R10.84 Generalized abdominal pain; F17.290 Nicotine dependence, other tobacco product, uncomplicated
CPT/HCPCS: 36415; 74177; 80053; 83605; 83690; 85025; 96361; 96374; 99284; J2405; J7030; Q9967

== ENCOUNTER 2021-09-07 09:54 | Outpatient (CLI) | payer OTHER, SELFPAY ==
--- NOTE | ~2021-09-07 | XR_ITS ---
XR UGIAC wo kub DATE: 09/07/2021 10:53 INDICATION: Preoperative evaluation for gastric sleeve surgery for morbid obesity TECHNIQUE: Air-contrast upper gastrointestinal series 94.755 DAP 1.2 minutes fluoroscopy time 125 images COMPARISON: None FINDINGS: There is normal deglutition and esophageal peristalsis. No stricture, mucosal fold thickeni ng, erosion or ulceration or intraluminal mass lesion of the esophagus, stomach or duodenum is detect ed. No hiatal hernia was demonstrated. IMPRESSION: Normal upper gastrointestinal series Reviewed, dictated and finalized at [facility] Reviewed, dictated and finalized at [facility].
== END 2021-09-07 09:55 | disposition home or self-care (01) ==
PROVIDERS: PCP Emergency Medicine
DX: Z01.818 Encounter for other preprocedural examination (principal); E66.01 Morbid (severe) obesity due to excess calories
CPT/HCPCS: 74246

== ENCOUNTER 2022-02-10 17:31 | Emergency (ER) | payer OTHER, SELFPAY ==
[2022-02-10 17:48] VITALS: BP 121/76; PULSE 76; RESP 16; TEMP 36.7; O2SAT 98
--- NOTE | 2022-02-10 17:57 | ED.URI ---
HPI - URI/Sore Throat General Chief Complaint: Upper Respiratory Infection Stated Complaint: cough congestion headache Time Seen by Provider: 02/10/22 17:57 History of Present Illness HPI Narrative: Patient presents with a five-day history of cough nasal congestion and body aches. Patient denies any shortness of breath no fever no chest pain. Patient had some antibiotics left at home from a previous upper respiratory illness which she has taken those but is unsure of the name of his antibiotics. Patient states he has taken Mucinex [id number] but not and has some cough syrup with codeine left from a previous illness. Related Data Allergies Allergy/AdvReac Type Severity Reaction Status Date / Time No Known Allergies Allergy Verified 04/03/20 10:03 Review of Systems Review of Systems: CONSTITUTIONAL: Denies chills, or sweats. Reports fever and generalized body aches EYES: Denies visual changes, redness, or discharge. ENT: Denies otalgia. Reports nasal congestion runny nose and sore throat CARDIOVASCULAR: Denies chest pain, palpitations, or edema. RESPIRATORY: Denies dyspnea. Reports occasional cough GASTROINTESTINAL: Denies abdominal pain, nausea, vomiting, or diarrhea. GENITOURINARY: Denies dysuria or hematuria. SKIN: Denies rash or itching. MUSCULOSKELETAL: Denies back pain, joint pain, or myalgia. Reports generalized body aches NEUROLOGIC: Denies headache, numbness, or weakness. PSYCHIATRIC: Denies anxiety or depression. [facility] Past Medical History Medical History (Updated 02/10/22 @ 18:02 by DENIZ Elias) Constipation Surgical History Surgical History No pertinent past surgical history Social History Social History Smoking status: Current every day smoker Tobacco type: cigarettes Alcohol intake: current Substance use: never Gender identity (if verbalized by the patient): Male Comments At time of signature, agree with nursing past medical, surgical, social and family history. There is no relevant family history pertinent to the presenting complaint Exam Narrative: CONSTITUTIONAL: Denies chills, or sweats. Reports fever and generalized body aches EYES: Denies visual changes, redness, or discharge. ENT: Denies otalgia. Reports nasal congestion runny nose and sore throat CARDIOVASCULAR: Denies chest pain, palpitations, or edema. RESPIRATORY: Denies dyspnea. Reports occasional cough GASTROINTESTINAL: Denies abdominal pain, nausea, vomiting, or diarrhea. GENITOURINARY: Denies dysuria or hematuria. SKIN: Denies rash or itching. MUSCULOSKELETAL: Denies back pain, joint pain, or myalgia. Reports generalized body aches NEUROLOGIC: Denies headache, numbness, or weakness. PSYCHIATRIC: Denies anxiety or depression. Course Course Level of Care: Express Care Visit Vital Signs Vital signs: Vital Signs Temperature 36.7 C 02/10/22 17:48 Pulse Rate 76 02/10/22 17:48 Respiratory Rate 16 02/10/22 17:48 Blood Pressure 121/76 02/10/22 17:48 Pulse Oximetry 98 02/10/22 17:48 Oxygen Delivery Room Air 02/10/22 17:48 Temperature 36.7 C 02/10/22 17:48 Pulse Rate 76 02/10/22 17:48 Respiratory Rate 16 02/10/22 17:48 Blood Pressure 121/76 02/10/22 17:48 Pulse Oximetry 98 02/10/22 17:48 Oxygen Delivery Room Air 02/10/22 17:48 MDM - URI/Sore Throat Differential Diagnosis Differential diagnosis: Likely upper respiratory infection, croup, otitis media, sinusitis, viral infection, bronchitis, influenza and pharyngitis Discharge Plan Discharge Clinical Impression: Bronchitis, Upper respiratory infection Patient Disposition: Home, Self-Care Condition: Stable Instructions: Acute Bronchitis (ED) Additional Instructions: Bronchitis Increase fluids and rest 1. Bronchitis will generally resolve on it's own and may take a few
== END 2022-02-10 18:09 | disposition home or self-care (01) ==
PROVIDERS: Emergency Provider Nurse Practitioner Family
DX: J40 Bronchitis, not specified as acute or chronic (principal); J06.9 Acute upper respiratory infection, unspecified; F17.210 Nicotine dependence, cigarettes, uncomplicated
CPT/HCPCS: 99213; G0463